=== PATIENT | female | born 2000 | race Asian ===

== ENCOUNTER 2023-01-20 21:23 | Emergency (ER) | payer OTHER ==
[~2023-01-20] VITALS: Ht 152.4 cm; Wt 58.6 kg
[2023-01-20 21:24] VITALS: TEMP 96.5
[2023-01-20] MEDS ORDERED: ACET-910 PO (21:35)
[2023-01-20] MEDS ORDERED: IBUP200C89 PO (21:35)
[2023-01-20] MEDS ORDERED: IBUP80TA PO (21:35)
[2023-01-20] MEDS ORDERED: OXYC-517 PO (21:35)
[2023-01-20 22:19] LABS: BASO # 0.1 10^3/uL (0.0-0.2); BASO % 0.4 % (0.0-1.0); EOS # 0.1 10^3/uL (0.0-0.5); EOS % 0.7 % (0.0-3.0); HEMOGLOBIN 11.8 g/dl (12.0-15.5); LYMPH # 1.6 10^3/uL (1.5-5.0); LYMPH % 13.7 % (24.0-44.0); MEAN CORPUSCULAR HEMOGLOBIN 29.9 pg (27.0-33.0); MEAN CORPUSCULAR HGB CONC 35.8 g/dl (32.0-36.5); MEAN CORPUSCULAR VOLUME 83.5 fl (80.0-96.0); MONO # 0.7 10^3/uL (0.0-0.8); MONO % 5.9 % (2.0-8.0); NEUTROPHILS # 9.1 10^3/uL (1.5-8.5); PLATELET COUNT, AUTOMATED 288 10^3/uL (150-450); RED BLOOD COUNT 3.95 10^6/uL (4.00-5.40); WHITE BLOOD COUNT 11.6 10^3/uL (4.0-10.0)
[2023-01-21 01:04] VITALS: BP 113/76; O2SAT 97
== END 2023-01-21 01:08 | disposition home or self-care (01) ==
LOC: M ED 21:23
DX: O03.9 Complete or unspecified spontaneous abortion without complication (principal); Z79.1 Long term (current) use of non-steroidal anti-inflammatories (NSAID); Z79.899 Other long term (current) drug therapy

== ENCOUNTER 2023-06-01 00:08 | Emergency (ER) | payer OTHER ==
[~2023-06-01 00:08] MED LIST: ACET-910 PO; IBUP200C89 PO; IBUP80TA PO; OXYC-517 PO
[2023-06-01 01:17] LABS: BASO % 0.5 % (0.0-1.0); HEMATOCRIT 38.8 % (36.0-47.0); LYMPH # 0.7 10^3/uL (1.5-5.0); LYMPH % 11.5 % (24.0-44.0); MEAN CORPUSCULAR HEMOGLOBIN 28.3 pg (27.0-33.0); MEAN CORPUSCULAR HGB CONC 33.5 g/dl (32.0-36.5); MEAN CORPUSCULAR VOLUME 84.5 fl (80.0-96.0); MONO # 0.2 10^3/uL (0.0-0.8); MONO % 2.9 % (2.0-8.0); NEUTROPHILS % 84.9 % (36.0-66.0); PLATELET COUNT, AUTOMATED 351 10^3/uL (150-450); RED BLOOD COUNT 4.59 10^6/uL (4.00-5.40); WHITE BLOOD COUNT 5.9 10^3/uL (4.0-10.0)
[2023-06-01] MEDS ORDERED: HALOPERIDOL 5MG/ML 1ML VIAL IM STA (01:29)
[2023-06-01] MEDS ORDERED: diphenhydrAMINE 50MG/ML VIAL IM STA (01:29)
[2023-06-01] MEDS ORDERED: LORazepam 2 MG/ML 1ML VIAL IM STA (01:29)
[2023-06-01 01:40] LABS: ETHYL ALCOHOL (ETHANOL) 0.246 % (0.000-0.010)
[2023-06-01 01:42] LABS: ALBUMIN 4.2 G/DL (3.2-5.2); ALKALINE PHOSPHATASE 99 U/L (46-116); ALT/SGPT 20 U/L (7.0-40); AST/SGOT 16 U/L (<34); BILIRUBIN,DIRECT 0.4 MG/DL (<0.4); BILIRUBIN,TOTAL 1.1 MG/DL (0.3-1.2); BLOOD UREA NITROGEN 7 MG/DL (9-23); CARBON DIOXIDE LEVEL 19 MMOL/L (20-31); CHLORIDE LEVEL 111 MMOL/L (98-107); CREATININE FOR GFR 0.52 MG/DL (0.55-1.30); GLOMERULAR FILTRATION RATE > 60.0 (>60); GLUCOSE, FASTING 97 MG/DL (60-100); POTASSIUM SERUM 3.3 MMOL/L (3.5-5.1); SALICYLATE LEVEL < 3.0 MG/DL (<30); SODIUM LEVEL 148 MMOL/L (136-145); TOTAL PROTEIN 7.6 G/DL (5.7-8.2)
[2023-06-01 01:44] LABS: THYROID STIMULATING HORMONE 0.733 uIU/ML (0.55-4.78)
[2023-06-01 01:55] LABS: HCG, SERUM QUALITATIVE NEGATIVE (NEGATIVE)
[2023-06-01 08:32] LABS: AMPHETAMINES LEVEL URINE NEGATIVE (NEGATIVE); BARBITURATES URINE NEGATIVE (NEGATIVE); BENZODIAZEPINES URINE NEGATIVE (NEGATIVE); COCAINE METABOLITE URINE NEGATIVE (NEGATIVE); METHADONE URINE NEGATIVE (NEGATIVE); OPIATES URINE NEGATIVE (NEGATIVE); PHENCYCLIDINE URINE NEGATIVE (NEGATIVE)
[2023-06-01 08:34] LABS: CANNABINOIDS URINE POSITIVE (NEGATIVE)
[2023-06-01 11:56] VITALS: BP 131/74; TEMP 96.7; O2SAT 97
== END 2023-06-01 12:04 | disposition home or self-care (01) ==
LOC: M ED 00:08
DX: F10.129 Alcohol abuse with intoxication, unspecified (principal)
CPT/HCPCS: 80048; 80076; 80143; 80307; 82077; 84443; 84703; 85025; 87635; 96372; 99285; J1200; J1630; J2060

== ENCOUNTER → 2023-10-20 | Outpatient (CLI) | payer OTHER | LOC: M OUTALCOH 07:44 | PROVIDERS: ATTEND Psychiatry & Neurology Psychiatry | DX: Z03.89 Encounter for observation for other suspected diseases and conditions ruled out (principal) ==

== ENCOUNTER 2023-10-27 09:31 | Outpatient (RCR) | payer OTHER | END 2023-11-23 | LOC: M OUTALCOH 09:31 | PROVIDERS: ATTEND Psychiatry & Neurology Psychiatry | DX: Z03.89 Encounter for observation for other suspected diseases and conditions ruled out (principal) ==

== ENCOUNTER 2024-10-19 01:51 | Emergency (ER) | payer OTHER ==
[~2024-10-19] VITALS: Ht 152.4 cm; Wt 63.0 kg
[2024-10-19 02:40] LABS: BASO % 0.2 % (0.0-1.0); EOS % 0.5 % (0.0-3.0); HEMATOCRIT 43.1 % (36.0-47.0); HEMOGLOBIN 14.3 g/dl (12.0-15.5); LYMPH # 0.7 10^3/uL (1.5-5.0); LYMPH % 12.5 % (24.0-44.0); MEAN CORPUSCULAR HEMOGLOBIN 28.1 pg (27.0-33.0); MEAN CORPUSCULAR HGB CONC 33.2 g/dl (32.0-36.5); MEAN CORPUSCULAR VOLUME 84.7 fl (80.0-96.0); MONO # 0.5 10^3/uL (0.0-0.8); MONO % 8.9 % (2.0-8.0); NEUTROPHILS # 4.3 10^3/uL (1.5-8.5); NEUTROPHILS % 77.5 % (36.0-66.0); PLATELET COUNT, AUTOMATED 340 10^3/uL (150-450); RED BLOOD COUNT 5.09 10^6/uL (4.00-5.40); WHITE BLOOD COUNT 5.6 10^3/uL (4.0-10.0)
[2024-10-19 03:09] LABS: LIPASE 58 U/L (12-53)
[2024-10-19 03:11] LABS: ALBUMIN 3.8 G/DL (3.2-5.2); ALKALINE PHOSPHATASE 121 U/L (35-104); ALT/SGPT 58 U/L (7.0-40); AST/SGOT 30 U/L (<34); BILIRUBIN,DIRECT 0.1 MG/DL (<0.4); BILIRUBIN,TOTAL 0.5 MG/DL (0.3-1.2); BLOOD UREA NITROGEN 8 MG/DL (9-23); CALCIUM LEVEL 8.9 MG/DL (8.5-10.1); CARBON DIOXIDE LEVEL 26 MMOL/L (20-31); CHLORIDE LEVEL 104 MMOL/L (98-107); GLOMERULAR FILTRATION RATE > 60.0 (>60); GLUCOSE, FASTING 112 MG/DL (60-100); HCG, SERUM QUALITATIVE NEGATIVE (NEGATIVE); SODIUM LEVEL 139 MMOL/L (136-145); TOTAL PROTEIN 7.5 G/DL (5.7-8.2)
[2024-10-19 07:16] LABS: KETONE, URINE AUTO RFX NEGATIVE (NEGATIVE); MUCUS, URINE RFX MODERATE (NEGATIVE); NITRITE, URINE AUTO RFX NEGATIVE (NEGATIVE); RBC, URINE AUTO RFX 0 /HPF (0-3); SQUAM EPITHELIAL CELL UR AURFX 14 /HPF (0-6)
[2024-10-19 07:19] LABS: LEUKOCYTE ESTERASE UR AUTO RFX 2+ (NEGATIVE); WBC, URINE AUTO RFX 26 /HPF (0-3)
[2024-10-19] MEDS: NS (Normal Saline) 0.9% 1,000 ML IV ONE (07:43)
[2024-10-19] MEDS ORDERED: ISOVUE-370 76% 100ML VIAL As Ordered ONE (07:47)
[2024-10-19 09:30] VITALS: BP 118/73; TEMP 98.5; O2SAT 96
== END 2024-10-19 10:10 | disposition home or self-care (01) ==
LOC: M ED 01:51
DX: R19.7 Diarrhea, unspecified (principal); R10.9 Unspecified abdominal pain; F10.10 Alcohol abuse, uncomplicated
CPT/HCPCS: 74177; 80048; 80076; 81001; 83690; 84703; 85025; 87086; 96360; 96361; 99284; Q9967